=== PATIENT | female | born 1965 | race African-American/Black ===

== ENCOUNTER 2020-02-24 17:06 | Emergency (ER) | payer OTHER ==
[~2020-02-24] VITALS: Ht 170.2 cm; Wt 28.1 kg
--- NOTE | 2020-02-24 17:13 | NUR ---
ED Nurse Note: pt ambualted to ed c/o left pinky toe pain. pt reports on 02/21/2020 she was at [facility] and stubbed her pinky toe on a metal fixture and it also pent her pinky toe. Pt reports taking motrin to help manage the pain but pain was not alleviated.
--- NOTE | 2020-02-24 17:22 | NUR ---
ED Nurse Note: xray at bedside
--- NOTE | 2020-02-24 17:50 | Emergency Room Report ---
History of Present Illness General Chief Complaint: Lower Extremity Injury Source: Patient Present Illness HPI 54-year-old female presents to the emergency department complaining of 10 out of 10 severity localized pain to the left fifth toe x2 days. Patient reports she has been taking Motrin with no relief. She reports swelling. Patient reports status post stubbing her toe. She reports some mild pain with palpation however she has more severe pain with weightbearing and ambulating. She denies significant past medical history other than high blood pressure. He denies open wounds or bleeding. She denies bruising, erythema or warmth. She reports the affected toe has some paresthesia. She reports anterior left knee abrasion which was sustained separately from her toe injury. Pt. is UTD with tdap. Allergies: Coded Allergies: CODEINE (Verified Allergy, Unknown, 02/24/20) Uncoded Allergies: SULFA (Allergy, Unknown, 02/24/20) COVID-19 Screening Contact w/high risk pt: No Experienced COVID-19 symptoms?: No COVID-19 Testing performed COMMUNITY SERVICE REPRESENTATIVE: No Patient History Past Medical History: see triage record Past Surgical History: none Pertinent Family History: none Last Menstrual Period: na Now: No Reviewed Nursing Documentation: PMH: Agreed; PSxH: Agreed Nursing Documentation-PMH Past Medical History: No History, Except For Hx Cardiac Problems: No Hx Hypertension: Yes Hx Pacemaker: No Hx Asthma: No Hx COPD: No Hx Diabetes: No Hx Cancer: No Hx Gastrointestinal Problems: No Hx Dialysis: No History Of Psychiatric Problem: No Hx Neurological Problems: No Hx Cerebrovascular Accident: No Hx Seizures: No Review of Systems All Other Systems: negative except mentioned in HPI Physical Exam Vital Signs Date Time Temp Pulse Resp B/P (MAP) Pulse Ox O2 Delivery O2 Flow Rate FiO2 02/24/20 17:08 98.2 71 17 137/84 (101) 99 Room Air Sp02 EP Interpretation: reviewed, normal General Appearance: no apparent distress, alert, GCS 15, non-toxic Head: normocephalic, atraumatic Eyes: bilateral eye normal inspection, bilateral eye PERRL ENT: hearing grossly normal, normal voice Neck: full range of motion Respiratory: lungs clear, normal breath sounds, speaking full sentences Cardiovascular #1: regular rate, rhythm, normal capillary refill Cardiovascular #2: 2+ dorsalis pedis (L) Musculoskeletal: normal range of motion, gait/station normal, tender - Left 5th toe, swelling - left 5th toe Neurologic: alert, motor strength/tone normal, oriented x3, sensory intact, responsive, speech normal Psychiatric: judgement/insight normal Skin: no rash, normal color, abrasion - Left anterior knee Medical Decision Making PA Attestation Dr. Oakes is my supervising Physician whom patient management has been discussed with. Diagnostic Impression: Primary Impression: Fracture of toe of left foot Qualified Codes: S92.525A - Nondisplaced fracture of middle phalanx of left lesser toe(s), initial encounter for closed fracture Additional Impressions: Contusion of toe, left Qualified Codes: S90.122A - Contusion of left lesser toe(s) without damage to nail, initial encounter Abrasion ER Course 54-year-old female presents to the emergency department complaining of 10 out of 10 severity localized pain to the left fifth toe x2 days. Patient reports she has been taking Motrin with no relief. She reports swelling. Patient reports status post stubbing her toe. She reports some mild pain with palpation however she has more severe pain with weightbearing and ambulating. She denies significant past medical history other than high blood pressure. He denies open wounds or bleeding. She denies bruising, erythema or warmth. She reports the affected toe has some paresthesia. She reports anterior left knee abrasion which was sustained separately from her toe injury. Pt. is UTD with tdap. Ddx considered but are not limited to Fracture, dislocation, contusion, Sprain/ Strain/Spasm, laceration, abrasion just to name a few. Vital signs: are WNL, pt. is afebrile H&PE are most consistent with musculoskeletal injury will perform imaging to r/ o fractures/dislocations. ORDERS: - X-ray Left Toes 3 views - Suspicious for Fx. --- Official radiological read was negative ED INTERVENTIONS: - IBU 800mg ( pt. declines Dana and requests 800mg IBU instead) -Ty tape Splint of the 5th toe applied by technical program manager. Pt. placed in walking shoe-hard sole. Pt. remains neurovascularly intact. DISCHARGE: At this time pt. is stable for d/c to home. Will provide printed patient care instructions, and any necessary prescriptions. Care plan and follow up instructions have been discussed with the patient prior to discharge. Other X-Ray Diagnostic Results Other X-Ray Diagnostic Results : X-Ray ordered: Left Toes # of Views/Limited Vs Complete: 3 View Indication: Pain EP Interpretation: Yes PA Xray: Interpretation reviewed, by supervising MD, and agrees with findings. Interpretation: no dislocation, no soft tissue swelling, other - suspicious for Fx of the proximal lesser toe Impression: Other - abn Electronically Signed by: Griselda Alexander PA-C Last Vital Signs Date Time Temp Pulse Resp B/P (MAP) Pulse Ox O2 Delivery O2 Flow Rate FiO2 02/24/20 17:08 98.2 71 17 137/84 (101) 99 Room Air Disposition: HOME, SELF-CARE Condition: Stable Scripts Bacitracin (Bacitracin) 28.4 Gm Oint...g. 1 APPLIC TOPIC THREE TIMES A DAY, #28.3 GM Prov: Griselda Alexander 02/24/20 Ibuprofen* (MOTRIN*) 800 Mg Tablet 800 MG ORAL THREE TIMES A DAY, #30 TAB 0 Refills Prov: Griselda Alexander 02/24/20 Referrals: [facility],REFERRING (PCP) Additional Instructions: Take medications as directed. Follow up with an TRAFFIC SIGN ERECTION SUPERVISOR in 3-5 days, even if your symptoms have resolved. --Please review list of primary care clinics, if you do not already have a primary care provider who can give you an Orthopedic Referral. Return sooner to ED if new symptoms occur, or current symptoms become worse. - Please note that this Emergency Department Report was dictated using [id number]+[id number] insurance sales agent technology software, occasionally this can lead to erroneous entry secondary to interpretation by the dictation equipment. Griselda Alexander Feb 24, 2020 17:50
[2020-02-24] MEDS ORDERED: BACITRACIN15 GM TOPIC (18:20)
[2020-02-24] MEDS ORDERED: Bacitracin Oint UD TOPIC ONE ×2 (18:20→18:30)
[2020-02-24] MEDS ORDERED: IBUPROFEN800 MG ORAL (18:20)
[2020-02-24 18:23] VITALS: BP 128/77
--- NOTE | 2020-02-24 18:23 | NUR ---
ER DISCHARGE NOTE: Patient is cleared to be discharged per ERMD, pt is aox4, on room air, with stable vital signs. pt was given dc and prescription instructions, pt was able to verbalize understanding, pt id bandremoved. pt is able to ambulate with steady gait. pt took all belongings. antonina bolaños taped per central services tech
--- NOTE | 2020-02-25 16:34 | Diagnostic Imaging Report ---
Indication: Pain, trauma Technique: 3 views of the left fifth toe Comparison: none Findings: No acute fractures. No dislocations. No radiopaque foreign body. Impression: Negative
== END 2020-02-24 18:25 | disposition home or self-care (01) ==
LOC: EMR 17:25
DX: S92.525A Nondisplaced fracture of middle phalanx of left lesser toe(s), initial encounter for closed fracture (principal); S90.122A Contusion of left lesser toe(s) without damage to nail, initial encounter; S80.212A Abrasion, left knee, initial encounter; I10 Essential (primary) hypertension; Z88.6 Allergy status to analgesic agent; Z88.2 Allergy status to sulfonamides; W22.8XXA Striking against or struck by other objects, initial encounter; Y92.9 Unspecified place or not applicable
CPT/HCPCS: 99283